=== PATIENT | male | born 1970 | race Caucasian/White ===

== ENCOUNTER 2023-03-26 11:01 | Emergency (ER) | payer OTHER ==
[2023-03-26 11:06] VITALS: BP 128/84; PULSE 92; RESP 20; TEMP 99.9; BMI 22.2
[2023-03-26] MEDS ORDERED: KETOROLAC TROMETHAMINE 30 MG/1 ML VIAL IM ONE (12:15)
[2023-03-26] MEDS ORDERED: DEXAMETHASONE SOD PHOSPHATE 10 MG/1 ML VIAL IVPUSH ONE (12:15)
[2023-03-26] MEDS ORDERED: KETOROLAC TROMETHAMINE 30 MG/1 ML VIAL ONE (12:17)
[2023-03-26] MEDS ORDERED: DEXAMETHASONE SOD PHOSPHATE 10 MG/1 ML VIAL ONE (12:17)
[2023-03-26 12:56] LABS: POTASSIUM 3.9 mmol/L (3.5-5.1)
[2023-03-26 12:57] LABS: BASO % 0.5 % (0-2.0); EOS % 0.2 % (0-4.5); HEMATOCRIT 40.5 % (35.4-49); HEMOGLOBIN 13.4 GM/dL (11.7-16.9); LYMPH % 13.4 % (8-40); MCH 32.9 pg (25.7-33.7); MCHC 33.2 g/dl (32.0-35.9); MEAN CELL VOLUME 99.2 fl (80-96); MEAN PLT VOLUME 9.6 fl (7.5-11.1); MONO % 7.3 % (3.8-10.2); NEUT % 78.6 % (42.8-82.8); PLATELET COUNT 279 10^3/uL (134-434); RBC 4.08 M/mm3 (4.00-5.60); RDW 13.6 % (11.9-15.9); WHITE BLOOD COUNT 15.2 K/mm3 (4.0-10.0)
[2023-03-26 12:58] LABS: ALBUMIN 4.2 g/dl (3.4-5.0); CALCIUM 9.8 mg/dL (8.5-10.1)
[2023-03-26 12:59] LABS: BLOOD UREA NITROGEN 13.1 mg/dL (7-18)
[2023-03-26 13:01] LABS: CREATININE 1.1 mg/dL (0.55-1.3)
[2023-03-26 13:23] LABS: THROAT:GRP A STREP NOT DETECTED (NOTDETECTED)
[2023-03-26] MEDS ORDERED: AMOX TR/POT CLAV 875MG/125MG TABLETS (FP) PO ONE (15:40)
[2023-03-26] MEDS ORDERED: AMOX TR/POT CLAV 875MG/125MG TABLETS (FP) ONE (15:43)
== END 2023-03-26 15:49 | disposition home or self-care (01) ==
LOC: JERFT 11:01
PROC: 3E033GC Introduction of Other Therapeutic Substance into Peripheral Vein, Percutaneous Approach (ICD-10-PCS; principal; 2023-03-26)
PROC: 3E0233Z Introduction of Anti-inflammatory into Muscle, Percutaneous Approach (ICD-10-PCS; 2023-03-26)
DX: J02.9 Acute pharyngitis, unspecified (principal); R07.0 Pain in throat; R13.10 Dysphagia, unspecified; M25.511 Pain in right shoulder; M79.641 Pain in right hand; Z91.81 History of falling; Z20.822 Contact with and (suspected) exposure to COVID-19
CPT/HCPCS: 0241U-QW; 36415; 70491-TC; 73030-TC-RT-FY; 73130-TC-RT-FY; 80053; 85025; 87651; 99285-25; J1100; Q9967